=== PATIENT | female | born 1955 | race Caucasian/White ===

== ENCOUNTER 2020-02-05 17:31 | Emergency (ER) | payer BC, SELFPAY ==
--- NOTE | ~2020-02-05 | CT_ITS ---
EXAMINATION: CT facial & cervical spine wo DATE: 02/05/2020 18:32 INDICATION: Head injury TECHNIQUE: Computed tomography (CT) of the maxillofacial region and cervical spine was performed with out intravenous contrast. The dose-length product (DLP) was 421.20 mGy-cm. Automated exposure control and iterative reconstruction technique were employed. COMPARISON: None FINDINGS: MAXILLOFACIAL CT: There is a left frontal scalp soft tissue laceration without underlying osseous abnormality. No facia l bone fracture is identified. The paranasal sinuses are well aerated. The mastoid air cells are halie r. CERVICAL SPINE CT: There is no fracture, dislocation, or subluxation. The vertebral body heights and alignment are wesly l. There is mild loss of intervertebral disc space height at C5-6. The odontoid is intact. The prever tebral soft tissues are normal. Small degenerative osteophytes project from the anterior endplates of multiple vertebral bodies. There is mild facet and uncovertebral joint osteoarthritis. IMPRESSION: 1. Left frontal scalp laceration without underlying osseous abnormality. 2. Mild cervical spondylosis without acute findings. Reviewed, dictated and finalized at location A. UETTE MAKER
--- NOTE | ~2020-02-05 | CT_ITS ---
EXAMINATION: CT brain wo con INDICATION: Head injury COMPARISON: None TECHNIQUE: Standard unenhanced head CT. The dose-length product (DLP) was 605.33 mGy-cm. The mA was a djusted according to patient size. Iterative reconstruction technique was employed. FINDINGS: There is no intracranial hemorrhage, acute infarction, or abnormal mass lesion. The ventric les are normal. There is no abnormal mass effect or midline shift. The garcia-white matter differentiat ion is normal. The basal cisterns are patent. The orbits are normal. There is a left frontal scalp so ft tissue laceration. The paranasal sinuses, mastoids and calvarium are normal. IMPRESSION: 1. Left frontal scalp soft tissue laceration without acute intracranial abnormality. Reviewed, dictated and finalized at location A. CH TRIMMER FINE IMPRESSION: 1. Left frontal scalp soft tissue laceration without acute intracranial abnorma lity.
--- NOTE | ~2020-02-05 | XR_ITS ---
EXAMINATION: XR hand LT min 3V INDICATION: Left hand pain TECHNIQUE: Three views of the left hand are obtained. COMPARISON: None available FINDINGS: There is advanced osteoarthritis at the first carpometacarpal joint. Moderate osteoarthriti s is noted at the triscaphe and multiple interphalangeal joints. No acute fracture is identified. The soft tissues are unremarkable. IMPRESSION: 1. Polyarticular osteoarthritis. Reviewed, dictated and finalized at location A. CONTROL FIELD REPRESENTATIVE
--- NOTE | ~2020-02-05 | XR_ITS ---
EXAMINATION: XR wrist LT min 3V DATE: 02/05/2020 19:26 INDICATION: Left wrist pain TECHNIQUE: Posteroanterior, ulnar deviation, oblique, and lateral views of the left wrist were obtain ed. COMPARISON: None available FINDINGS: There is no fracture, dislocation, or subluxation. Advanced osteoarthritis is noted at the first carpometacarpal joint. The soft tissues are unremarkable. IMPRESSION: 1. No acute osseous abnormality. Reviewed, dictated and finalized at location A. EGE SPECIALIST
[2020-02-05 17:39] VITALS: BP 167/88; PULSE 90; RESP 14; TEMP 36.1; O2SAT 99
--- NOTE | 2020-02-05 18:14 | ED.FALL ---
HPI - Fall General Chief Complaint: Fall Stated Complaint: fall, head injury, left hand Time Seen by Provider: 02/05/20 17:57 Source: patient Mode of arrival: ambulatory Limitations: no limitations History of Present Illness HPI Narrative: This is a 64 year old female that presents to the ER after a fall today with head injury. Reports she tripped and fell and hit her head on the bottom step going into the house. Reports catching herself with her left hand and pain at the base of the thumb. Reports a laceration to her forehead. She is not up-to-date on tetanus. Denies loss of consciousness, vision changes, vomiting, weakness, or numbness. Related Data Home Medications Medication Instructions Recorded Confirmed desvenlafaxine succinate mg PO 02/05/20 mirabegron [Myrbetriq] mg PO 02/05/20 Allergies Allergy/AdvReac Type Severity Reaction Status Date / Time acyclovir Allergy Mild Unknown Verified 02/05/20 18:30 dicyclomine Allergy Mild Unknown Verified 02/05/20 18:30 fentanyl Allergy Mild Unknown Verified 02/05/20 18:30 oxycodone Allergy Mild Unknown Verified 02/05/20 18:30 simvastatin Allergy Mild Unknown Verified 02/05/20 18:30 sulfamethoxazole Allergy Mild Unknown Verified 02/05/20 18:30 tetracycline Allergy Mild Unknown Verified 02/05/20 18:30 trimethoprim Allergy Mild Unknown Verified 02/05/20 18:30 rosuvastatin Allergy Unknown Unknown Verified 02/05/20 18:30 NSAIDS (Non-Steroidal AdvReac Unknown Verified 02/05/20 19:09 Anti-Inflamma HYDROCODONE BIT Allergy Mild Unknown Uncoded 02/05/20 18:30 VENTRA Allergy Mild Unknown Uncoded 02/05/20 18:30 Review of Systems Review of Systems: Narrative: CONSTITUTIONAL: Denies fever EYES: Denies visual changes CARDIOVASCULAR: Denies chest pain RESPIRATORY: Denies dyspnea. GASTROINTESTINAL: Denies vomiting MUSCULOSKELETAL: Reports joint pain and myalgia. Denies back pain NEUROLOGIC: Reports headache. Denies numbness, or weakness. All systems reviewed & are unremarkable except as noted in HPI and below PMFSH Past Medical History Medical History (Updated 02/05/20 @ 20:37 by Jenae Purdy PA-C) History of depression Overactive bladder Surgical History Surgical History (Updated 02/05/20 @ 18:18 by Jenae Purdy PA-C) History of appendectomy History of cholecystectomy History of hysterectomy Exam Narrative: Exam Narrative: GENERAL: Well-appearing, well-nourished, and in no acute distress. HEAD: Normocephalic. 4cm linear laceration into subcutaneous tissue over the left side of forehead EYES: PERRLA and EOMI. ENT: Nares clear, no rhinorrhea or epistaxis. Mucous membranes moist. Oropharynx without tonsillar hypertrophy exudate or other lesions. Bilateral TMs pearly garcia non-bulging NECK: Supple. No adenopathy or masses. CHEST: Clear to auscultation. No respiratory distress. No wheezes rales or rhonchi HEART: Regular rate and rhythm. No murmur heard. Normal peripheral pulses. BACK: No midline thoracic or lumbar spine tenderness EXTREMITIES: Normal range of motion. Mild edema to the base of the left thumb on the palmar aspect, tender to palpation in the area. Normal radial pulses. Normal sensation SKIN: Warm, dry, no rash. NEURO: No focal deficits. Alert and oriented x3. CN II-XII grossly intact PSYCH: Normal mood and affect Course Vital Signs Vital signs: Vital Signs Temperature 96.9 F L 02/05/20 17:39 Pulse Rate 90 02/05/20 17:39 Respiratory Rate 14 02/05/20 17:39 Blood Pressure 167/88 H 02/05/20 17:39 Pulse Oximetry 99 02/05/20 17:39 Temperature 96.9 F L 02/05/20 17:39 Pulse Rate 90 02/05/20 17:39 Respiratory Rate 14 02/05/20 17:39 Blood Pressure 167/88 H 02/05/20 17:39 Pulse Oximetry 99 02/05/20 17:39 Procedures Laceration Laceration 1: Date: 02/05/20 Time: 20:33 Site: face Side (If applicable): left Size (cm): 4 Description: linear Depth: simple, single layer
[2020-02-05] MEDS: ACETAMINOPHEN 500 MG TABLET 1000 MG PO (19:45)
[2020-02-05] MEDS: TETANUS,DIPHTHERIA,AC PERTUSSIS ADULT (0.5 ML) BOOSTRIX IM (19:45)
[2020-02-05] MEDS: LIDO 1%/EPINEPHRINE 1:100,000 20 ML VIAL INFILTRATE (19:46)
--- NOTE | 2020-02-05 19:59 | PC.NURSE ---
GOYO in room at this time suturing patient.
== END 2020-02-05 20:44 | disposition home or self-care (01) ==
PROVIDERS: Emergency Provider Emergency Medicine; PCP Internal Medicine Endocrinology, Diabetes & Metabolism
DX: S01.81XA Laceration without foreign body of other part of head, initial encounter (principal); M25.532 Pain in left wrist; Z23 Encounter for immunization; M47.812 Spondylosis without myelopathy or radiculopathy, cervical region; M19.042 Primary osteoarthritis, left hand; W01.198A Fall on same level from slipping, tripping and stumbling with subsequent striking against other object, initial encounter
CPT/HCPCS: 12042; 12052; 70450; 70486; 72125; 73110; 73130; 90471; 90715; 99284; A9270